=== PATIENT | male | born 1965 | race Hispanic/Latino ===

== ENCOUNTER 2019-09-28 19:46 | Emergency (ER) | payer OTHER, SELFPAY ==
[2019-09-28 21:11] LABS: Anion Gap 6 mmol/L (10-20); BUN (Urea Nitrogen) 4 mg/dL (8.4-25.7); Calc. Creatinine Clearance 0 mL/min (70-130); Carbon Dioxide 15 mmol/L (22-29); Chloride 95 mmol/L (98-107); Estimated GFR-MDRD Greater than 90
[2019-09-28 21:23] LABS: Calcium 4.9 mg/dL (7.8-10.44); Glucose 570 mg/dL (70-105); Potassium 2.3 mmol/L (3.5-5.1); Sodium 114 mmol/L (136-145)
[2019-09-28 21:52] LABS: SARS-CoV-2 NAA Rapid Test DETECTED (NotDetected)
== END 2019-09-29 01:05 | disposition short-term general hospital (02) ==
LOC: ERS 19:46
DX: U07.1 COVID-19 (principal); E87.6 Hypokalemia; E87.1 Hypo-osmolality and hyponatremia; R11.2 Nausea with vomiting, unspecified; F17.210 Nicotine dependence, cigarettes, uncomplicated
CPT/HCPCS: 36415; 96360; U0002

== ENCOUNTER 2020-07-16 10:47 | Inpatient (IN) | payer OTHER, SELFPAY ==
[2020-07-16 12:04] LABS: Hemoglobin 14.6 g/dL (14.0-18.0); Mean Corpuscular HGB CONC 34.7 g/dL (32.0-36.0); Mean Corpuscular Hemoglobin 33.5 pg (27.0-31.0); Mean Corpuscular Volume 96.7 fL (78.0-98.0); RBC Distribution Width 12.7 % (11.5-14.5); Red Blood Cell (RBC) Count 4.36 mill/uL (4.70-6.10); White Blood Cell (WBC) Count 6.9 thou/uL (4.8-10.8)
[2020-07-16 12:10] LABS: Mean Platelet Volume 8.8 fL (7.4-10.4); Platelet Count 116 thou/uL (130-400)
[2020-07-16 12:13] LABS: INR-International Normal Ratio 0.9; PTT 32.7 sec (22.9-36.1); Prothrombin Time 12.7 sec (12.0-14.7)
[2020-07-16 12:24] LABS: Band 13 % (5-11); Large Platelets SLIGHT; Lymphocytes 29 % (21-51); MDiff Complete? YES; Monocytes 5 % (0-10); Neutrophil 49 % (42-75); Platelet Morphology Comment Appears Decreased; RBC Morphology Normal; Reactive Lymphocytes 4 % (0-10)
[2020-07-16 12:42] LABS: Albumin 3.6 g/dL (3.5-5.0)
[2020-07-16 12:43] LABS: Chloride 88 mmol/L (98-107); Potassium 4.1 mmol/L (3.5-5.1)
[2020-07-16 12:44] LABS: Calcium 9.1 mg/dL (7.8-10.44)
[2020-07-16 12:45] LABS: Globulin 3.6 g/dL (2.4-3.5); Glucose 99 mg/dL (70-105); Protein, Total 7.2 g/dL (6.0-8.3)
[2020-07-16 12:46] LABS: Anion Gap 12 mmol/L (10-20); Bilirubin, Total 0.6 mg/dL (0.2-1.2); Carbon Dioxide 23 mmol/L (22-29)
[2020-07-16 12:47] LABS: Alkaline Phosphatase 148 U/L (40-110)
[2020-07-16 12:48] LABS: Calc. Creatinine Clearance 0 mL/min (70-130)
[2020-07-16 12:49] LABS: BUN (Urea Nitrogen) 8 mg/dL (8.4-25.7)
[2020-07-16 12:50] LABS: ALT (SGPT) 38 U/L (8-55); AST (SGOT) 52 U/L (5-34)
[2020-07-16 12:51] LABS: Lipase 7 U/L (8-78); Sodium 119 mmol/L (136-145)
[2020-07-16] MEDS ORDERED: Folic Acid 1 MG, Multivitamins, Adult 10 ML in Dextrose 5 %-0.45 % NaCl 1,000 ML IV SCH (13:15)
[2020-07-16] MEDS ORDERED: Thiamine HCl 200 MG/2 ML VIAL SLOW IVP SCH (13:15)
[2020-07-16] MEDS ORDERED: Ondansetron PF 4 MG/2 ML Vial IVP PRN (14:07)
[2020-07-16] MEDS ORDERED: Acetaminophen 325 MG TAB PO PRN (15:00)
[2020-07-16] MEDS ORDERED: Ondansetron ODT 4 MG TAB SL PRN (15:00)
[2020-07-16 16:53] LABS: Troponin I 0.011 ng/mL (< 0.028)
[2020-07-16 17:47] VITALS: BMI 19.6
[2020-07-16 19:57] LABS: Potassium 3.4 mmol/L (3.5-5.1)
[2020-07-16 20:01] LABS: Troponin I Less than 0.010 ng/mL (< 0.028)
[2020-07-16 20:58] LABS: SARS-CoV-2 PCR by NAA Not Detected (NotDetected)
[2020-07-17 04:49] LABS: #Basophils 0.1 thou/uL (0.0-0.2); #Eosinphils 0.1 thou/uL (0.0-0.7); #Lymphocytes 2.2 thou/uL (1.20-3.40); #Monocytes 0.7 thou/uL (0.11-0.59); #Neutrophils 3.1 thou/uL (1.40-6.50); %Basophils 1.3 % (0.0-1.0); %Eosinophils 2.1 % (0.0-10.0); %Lymphocytes 35.1 % (21.0-51.0); %Monocytes 10.9 % (0.0-10.0); %Neutrophils 50.6 % (42.0-75.0); Hemoglobin 13.5 g/dL (14.0-18.0); Mean Corpuscular HGB CONC 34.3 g/dL (32.0-36.0); Mean Corpuscular Hemoglobin 33.3 pg (27.0-31.0); Mean Corpuscular Volume 97.2 fL (78.0-98.0); Mean Platelet Volume 9.2 fL (7.4-10.4); Platelet Count 108 thou/uL (130-400); RBC Distribution Width 12.7 % (11.5-14.5); Red Blood Cell (RBC) Count 4.05 mill/uL (4.70-6.10); White Blood Cell (WBC) Count 6.1 thou/uL (4.8-10.8)
[2020-07-17 05:07] LABS: Anion Gap 13 mmol/L (10-20); BUN (Urea Nitrogen) 9 mg/dL (8.4-25.7); Calc. Creatinine Clearance 95 mL/min (70-130); Calcium 8.7 mg/dL (7.8-10.44); Carbon Dioxide 26 mmol/L (22-29); Chloride 88 mmol/L (98-107); Glucose 82 mg/dL (70-105); Potassium 3.4 mmol/L (3.5-5.1); Sodium 124 mmol/L (136-145)
[2020-07-17] MEDS: Enoxaparin Sodium 40 MG/0.4 ML SYRINGE SC SCH (08:16)
[2020-07-17] MEDS: Folic Acid 1 MG TAB PO SCH (08:17)
[2020-07-17] MEDS: Thiamine 100 MG TAB PO SCH (08:17)
[2020-07-17] MEDS: Nicotine 21 MG PATCH TD SCH (08:17)
[2020-07-17] MEDS ORDERED: Potassium Chloride 20 MEQ TAB PO SCH (10:15)
[2020-07-18 07:04] LABS: #Eosinphils 0.1 thou/uL (0.0-0.7); #Lymphocytes 2.3 thou/uL (1.20-3.40); #Monocytes 0.9 thou/uL (0.11-0.59); #Neutrophils 3.2 thou/uL (1.40-6.50); %Basophils 0.3 % (0.0-1.0); %Eosinophils 1.8 % (0.0-10.0); %Lymphocytes 35.1 % (21.0-51.0); %Monocytes 13.1 % (0.0-10.0); %Neutrophils 49.7 % (42.0-75.0); Mean Corpuscular HGB CONC 34.1 g/dL (32.0-36.0); Mean Corpuscular Hemoglobin 33.5 pg (27.0-31.0); Mean Corpuscular Volume 98.2 fL (78.0-98.0); Mean Platelet Volume 8.9 fL (7.4-10.4); Platelet Count 105 thou/uL (130-400); RBC Distribution Width 12.6 % (11.5-14.5); Red Blood Cell (RBC) Count 3.88 mill/uL (4.70-6.10); White Blood Cell (WBC) Count 6.5 thou/uL (4.8-10.8)
[2020-07-18 07:23] LABS: Anion Gap 11 mmol/L (10-20); BUN (Urea Nitrogen) 8 mg/dL (8.4-25.7); Calc. Creatinine Clearance 91 mL/min (70-130); Calcium 8.9 mg/dL (7.8-10.44); Carbon Dioxide 26 mmol/L (22-29); Chloride 92 mmol/L (98-107); Glucose 91 mg/dL (70-105); Potassium 3.6 mmol/L (3.5-5.1); Sodium 125 mmol/L (136-145)
[2020-07-18 07:32] LABS: ALT (SGPT) 51 U/L (8-55); AST (SGOT) 54 U/L (5-34); Albumin 3.4 g/dL (3.5-5.0); Alkaline Phosphatase 138 U/L (40-110); Bilirubin, Direct 0.3 mg/dL (0.1-0.3); Bilirubin, Total 0.5 mg/dL (0.2-1.2); Protein, Total 6.7 g/dL (6.0-8.3)
[2020-07-18] MEDS: Enoxaparin Sodium 40 MG/0.4 ML SYRINGE SC SCH (09:11)
[2020-07-18] MEDS: Thiamine 100 MG TAB PO SCH (09:11)
[2020-07-18] MEDS: Folic Acid 1 MG TAB PO SCH (09:11)
[2020-07-18] MEDS: Nicotine 21 MG PATCH TD SCH (09:11)
[2020-07-19 07:31] LABS: #Basophils 0.1 thou/uL (0.0-0.2); #Eosinphils 0.2 thou/uL (0.0-0.7); #Neutrophils 2.6 thou/uL (1.40-6.50); %Basophils 1.2 % (0.0-1.0); %Eosinophils 2.8 % (0.0-10.0); %Monocytes 14.2 % (0.0-10.0); %Neutrophils 37.8 % (42.0-75.0); Hemoglobin 14.2 g/dL (14.0-18.0); Mean Corpuscular HGB CONC 33.5 g/dL (32.0-36.0); Mean Corpuscular Hemoglobin 33.1 pg (27.0-31.0); Mean Corpuscular Volume 98.8 fL (78.0-98.0); Mean Platelet Volume 8.6 fL (7.4-10.4); Platelet Count 110 thou/uL (130-400); RBC Distribution Width 12.6 % (11.5-14.5); Red Blood Cell (RBC) Count 4.28 mill/uL (4.70-6.10); White Blood Cell (WBC) Count 6.7 thou/uL (4.8-10.8)
[2020-07-19 07:57] LABS: ALT (SGPT) 55 U/L (8-55); AST (SGOT) 58 U/L (5-34); Albumin 3.6 g/dL (3.5-5.0); Alkaline Phosphatase 156 U/L (40-110); Anion Gap 13 mmol/L (10-20); BUN (Urea Nitrogen) 8 mg/dL (8.4-25.7); Bilirubin, Total 0.5 mg/dL (0.2-1.2); Calc. Creatinine Clearance 83 mL/min (70-130); Calcium 9.4 mg/dL (7.8-10.44); Carbon Dioxide 26 mmol/L (22-29); Chloride 95 mmol/L (98-107); Globulin 3.5 g/dL (2.4-3.5); Glucose 88 mg/dL (70-105); Potassium 4.3 mmol/L (3.5-5.1); Protein, Total 7.1 g/dL (6.0-8.3); Sodium 130 mmol/L (136-145)
[2020-07-19] MEDS ORDERED: Ondansetron PF 4 MG/2 ML Vial IVP PRN (08:20)
[2020-07-19] MEDS: Enoxaparin Sodium 40 MG/0.4 ML SYRINGE SC SCH (08:54)
[2020-07-19] MEDS: Thiamine 100 MG TAB PO SCH (08:54)
[2020-07-19] MEDS: Nicotine 21 MG PATCH TD SCH (08:55)
[2020-07-19] MEDS: Folic Acid 1 MG TAB PO SCH (08:55)
[2020-07-19] MEDS ORDERED: Nicotine 21 MG PATCH TD SCH (09:00)
[2020-07-19] MEDS ORDERED: Thiamine 100 MG TAB PO SCH (09:00)
[2020-07-19] MEDS ORDERED: Folic Acid 1 MG TAB PO SCH (09:00)
[2020-07-19] MEDS ORDERED: Enoxaparin Sodium 40 MG/0.4 ML SYRINGE SC SCH (09:00)
[2020-07-19 13:04] VITALS: BP 133/74; TEMP 97.5
== END 2020-07-19 17:23 | disposition home or self-care (01) | DRG 641 ==
LOC: ERS 10:47 → 2NO 13:16 → ONC 07-17 15:07 → UNDODISIN 07-18 19:35
PROVIDERS: ADMIT Internal Medicine; ATTEND Internal Medicine
PROC: HZ2ZZZZ Detoxification Services for Substance Abuse Treatment (ICD-10-PCS; principal; 2020-07-16)
DX: E87.1 Hypo-osmolality and hyponatremia (principal); E44.0 Moderate protein-calorie malnutrition; Z68.1 Body mass index [BMI] 19.9 or less, adult; F10.188 Alcohol abuse with other alcohol-induced disorder; F17.210 Nicotine dependence, cigarettes, uncomplicated; Z20.822 Contact with and (suspected) exposure to COVID-19; E87.8 Other disorders of electrolyte and fluid balance, not elsewhere classified; J44.9 Chronic obstructive pulmonary disease, unspecified; E88.09 Other disorders of plasma-protein metabolism, not elsewhere classified; R74.8 Abnormal levels of other serum enzymes; E87.6 Hypokalemia; N18.1 Chronic kidney disease, stage 1; D63.1 Anemia in chronic kidney disease; K70.10 Alcoholic hepatitis without ascites; Z89.012 Acquired absence of left thumb; Z86.16 Personal history of COVID-19
CPT/HCPCS: 36415; 70450; 71046; 80048; 80053; 80076; 82533; 83605; 83690; 83930; 83935; 84300; 84443; 84484; 85025; 85610; 85730; 86850; 86900; 86901; 87635; 93005; 96374; J1650; J3411; J7042; U0003; U0005